=== PATIENT | male | born 1990 | race African-American/Black ===

== ENCOUNTER 2018-08-29 12:15 | Emergency (ER) | payer MEDICAID, OTHER ==
[~2018-08-29] VITALS: Ht 172.7 cm; Wt 73.0 kg
[2018-08-29 12:51] VITALS: BP 124/77
[2018-08-29] MEDS ORDERED: PREDNISONE 20MG TABLET PO STA (13:54)
[2018-08-29] MEDS ORDERED: ALBUTEROL (0.083%) 2.5MG/3ML NEB HHN STA (13:54)
[2018-08-29] MEDS ORDERED: IPRATROPIUM BROMIDE (0.02%) 0.5MG/2.5ML NEB HHN STA (13:54)
[2018-08-29] MEDS ORDERED: ALBUTEROL (0.083%) 2.5MG/3ML NEB ONE (14:55)
[2018-08-29] MEDS ORDERED: ALBUTEROL (0.5%) 2.5MG/0.5ML NEB HHN ONE (14:55)
== END 2018-08-29 16:24 | disposition home or self-care (01) ==
LOC: ER 12:15
DX: J45.901 Unspecified asthma with (acute) exacerbation (principal); B34.9 Viral infection, unspecified
CPT/HCPCS: 71045; 94644; 99285; J7512; J7611

== ENCOUNTER 2025-02-25 20:39 | Emergency (ER) | payer MEDICAID, OTHER ==
[2025-02-25 20:45] VITALS: PULSE 96; RESP 20; O2SAT 100
== END 2025-02-25 23:49 | disposition left against medical advice (07) ==
LOC: ER 20:39
DX: S61.218A Laceration without foreign body of other finger without damage to nail, initial encounter (principal); Z53.21 Procedure and treatment not carried out due to patient leaving prior to being seen by health care provider; X58.XXXA Exposure to other specified factors, initial encounter; Y93.89 Activity, other specified; Y92.89 Other specified places as the place of occurrence of the external cause; Y99.8 Other external cause status